=== PATIENT | female | born 1945 | race Caucasian/White ===

== ENCOUNTER 2016-11-21 16:48 | Inpatient (IN) | payer OTHER ==
--- NOTE | ~2016-11-21 | EGD ---
EGD REPORT [facility] [address] [address] NAME: VI CHAND : [birth year] STATUS : DIS IN PAT#: [id number] AGE: 71 ADM/REG DATE : 11/21/16 MR#: [id number] REPORT SERV DATE: 12/18/16 DICTATED BY: LAVERN ARAMBULA DATE: 12/18/16 REPORT STATUS : Draft [facility]ANSCRIBED [facility]: [facility] DATE: 12/18/16 Endoscopy Center Patient Name: Vi Chand Date of : 1945 Attending MD: LAVERN ARAMBULA MD Procedure Date No Time: 11/25/2016 Procedure: Colonoscopy Indications: Iron deficiency anemia Referring MD: ADAMARIS ANN MD Medicines: Monitored Anesthesia Care Complications: No immediate complications. Procedure: Pre-Anesthesia Assessment: - ASA Grade Assessment: III - A patient with severe systemic disease. After I obtained informed consent, the scope was passed under direct vision. Throughout the procedure, the patient's blood pressure, pulse, and oxygen saturations were monitored continuously. The PCF H190L [id number] was introduced through the anus and advanced to the terminal ileum, with identification of the appendiceal orifice and IC valve. The colonoscopy was performed with moderate difficulty due to significant looping. Successful completion of the procedure was aided by applying abdominal pressure. The patient tolerated the procedure well. The quality of the bowel preparation was good. Findings: The terminal ileum appeared normal. The colon (entire examined portion) appeared normal. Hemorrhoids were found during retroflexion and were mild. Impression: - The examined portion of the ileum was normal. - The entire examined colon is normal. - Hemorrhoids. Recommendation: - Patient has a contact number available for emergencies. The signs and symptoms of potential delayed complications were discussed with the patient. Return to normal activities tomorrow. Written discharge instructions were provided to the patient. - Regular diet. - Continue present medications. - Return to GI clinic in 4 weeks. - Reconsult if needed. EGD REPORT [facility] [address] [address] NAME: VI CHAND : [birth year] STATUS : DIS IN PAT#: [id number] AGE: 71 ADM/REG DATE : 11/21/16 MR#: [id number] REPORT SERV DATE: 12/18/16 DICTATED BY: LAVERN ARAMBULA DATE: 12/18/16 REPORT STATUS : Draft TRANSCRIBED BY: [employer] DATE: 12/18/16 - Iron supplement daily. - Outpatient follow up and pillcam Procedure Code(s): --- Professional --- 25606, Colonoscopy, flexible, proximal to splenic flexure; diagnostic, with or without collection of specimen(s) by brushing or washing, with or without colon decompression (separate procedure) Diagnosis Code(s): --- Professional --- K64.9, Unspecified hemorrhoids D50.9, Iron deficiency anemia, unspecified CPT copyright 2013 [employer]. All rights reserved. The codes documented in this report are preliminary and upon gas engine repairer review may be revised to meet current compliance requirements. LAVERN ARAMBULA MD 11/25/2016 8:48 AM This report has been signed electronically. Number of Addenda: 0 Note Initiated On: 11/25/2016 7:01 AM Scope Withdrawal Time 0 hours 6 minutes 38 seconds [address] [address]
--- NOTE | ~2016-11-21 | IDS ---
Interim Discharge Summary [facility] [address] [place]. [address] NAME: VI CHAND : [birth year] STATUS : ADM IN PAT#: [id number] AGE: 71 ADM/REG DATE : 11/21/16 MR#: [id number] REPORT SERV DATE: 11/26/16 DICTATED BY: LATRICE STRANGE DATE: 11/26/16 REPORT STATUS : Draft TRANSCRIBED BY: MODL DATE: 11/26/16 ADMISSION DATE: 11/21/2016 DISCHARGE DATE: REASON FOR ADMISSION: Direct admission from [facility] ER for acute loss anemia and concern for upper GI bleed. HISTORY OF PRESENT ILLNESS: Please refer to my history and physical for complete details regarding the patient's admission. In brief, the patient was admitted to the Hospitalist Service for symptomatic anemia likely secondary to an upper GI bleed along with acute blood loss anemia with an initial presentation to [facility] with a hemoglobin of 4. HOSPITAL COURSE: The patient had an uncomplicated hospital course. She presented to [facility] ER with a hemoglobin of 4. She was transfused 2 units of blood before being transferred to [facility] for further evaluation. She received an additional 3 units for a total of 5 units of blood products. She had serial hemoglobins, which were checked afterwards. Her hemoglobin had remained very stable at around 9.5. Dr. Coulter performed an EGD on 11/22/2016, which showed a tortuous esophagus and a hiatal hernia. Otherwise, no evidence of recent bleeding. She was started initially on IV Protonix, but then recommended switching over to oral Protonix twice a day. She then had a colonoscopy, which had been delayed for one to two days due to a poor prep. Dr. Harry performed a colonoscopy on Saturday, which showed the examined portion of the ileum was normal. The entire examined colon is normal. However, there are hemorrhoids, but no active bleeding, and recommended returning to the GI Clinic in four weeks. It was felt that her anemia was likely secondary to severe iron deficiency. We were unable to test her for iron deficiency. She had already received 2 units of blood prior to hospitalization, but at any rate, her hemoglobin has been stable ever since she received her blood and has not been dipped down at all. She was started on cefuroxime for an E. coli urinary tract infection. The patient is a chronic pain patient with an internalized Dilaudid pump, which we did not mess around with. She did complain of some constipation, which we gave her some laxatives. The patient's sister was concerned about her safety at home. Given her deconditioned state, we had PT evaluate her and recommended rehab. Unfortunately, a bed will not be available until Saturday at [facility] [place]. So, the patient will hang around until then. Otherwise, the patient has been stable and we are just waiting for transfer to rehab facility. Further disposition per oncoming hospitalist. INTERIM DIAGNOSES: Severe iron deficiency anemia, status post 5 units packed red blood cells, now stable; morbid obesity; chronic pain, dependent on narcotics, which is a Dilaudid pump; E coli urinary tract infection, resolving; history of gastritis with Desmond ulcers; and acute hypoxic respiratory failure secondary to symptomatic anemia, now resolved. PROCEDURES: Include consultation with Dr. Coulter and Dr. Harry, EGD, colonoscopy, transfusion of 3 units packed red blood cells at this hospital with [facility]. Interim Discharge Summary [address] [address] NAME: VI CHAND : [birth year] STATUS : ADM IN [facility]#: [id number] AGE: 71 ADM/REG DATE : 11/21/16 MR#: [id number] REPORT SERV DATE: 11/26/16 DICTATED BY: LATRICE STRNAGE DATE: 11/26/16 REPORT STATUS : Draft TRANSCRIBED BY: MODSaul DATE: 11/26/16 ROSSY/KEELEY Latrice Strange MD / [id number] CC: MD CHRISTIAN Giron [facility]
--- NOTE | ~2016-11-21 | EGD ---
EGD REPORT [facility] [address] [address] NAME: VI CHAND : [birth year] STATUS : ADM IN PAT#: [id number] AGE: 71 ADM/REG DATE : 11/21/16 MR#: [id number] REPORT SERV DATE: 11/25/16 DICTATED BY: LAVERN ARAMBULA DATE: 11/25/16 REPORT STATUS : Draft TRANSCRIBED BY: [facility] DATE: 11/25/16 Endoscopy Center Patient Name: Vi Chand Date of : 1945 Attending MD: LAVERN ARAMBULA MD Procedure Date No Time: 11/25/2016 Procedure: Colonoscopy Indications: Iron deficiency anemia Referring MD: ADAMARIS ANN MD Medicines: Monitored Anesthesia Care Complications: No immediate complications. Procedure: Pre-Anesthesia Assessment: - ASA Grade Assessment: III - A patient with severe systemic disease. After I obtained informed consent, the scope was passed under direct vision. Throughout the procedure, the patient's blood pressure, pulse, and oxygen saturations were monitored continuously. The PCF H190L [id number] was introduced through the anus and advanced to the terminal ileum, with identification of the appendiceal orifice and IC valve. The colonoscopy was performed with moderate difficulty due to significant looping. Successful completion of the procedure was aided by applying abdominal pressure. The patient tolerated the procedure well. The quality of the bowel preparation was good. Findings: The terminal ileum appeared normal. The colon (entire examined portion) appeared normal. Hemorrhoids were found during retroflexion and were mild. Impression: - The examined portion of the ileum was normal. - The entire examined colon is normal. - Hemorrhoids. Recommendation: - Patient has a contact number available for emergencies. The signs and symptoms of potential delayed complications were discussed with the patient. Return to normal activities tomorrow. Written discharge instructions were provided to the patient. - Regular diet. - Continue present medications. - Return to GI clinic in 4 weeks. - Reconsult if needed. EGD REPORT [facility] [address] [address] NAME: VI CHAND : [birth year] STATUS : ADM IN [facility]#: [id number] AGE: 71 ADM/REG DATE : 11/21/16 MR#: [id number] REPORT SERV DATE: 11/25/16 DICTATED BY: LAVERN ARAMBULA DATE: 11/25/16 REPORT STATUS : Draft TRANSCRIBED BY: [employer] DATE: 11/25/16 - Iron supplement daily. - Outpatient follow up and pillcam Procedure Code(s): --- Professional --- 02768, Colonoscopy, flexible, proximal to splenic flexure; diagnostic, with or without collection of specimen(s) by brushing or washing, with or without colon decompression (separate procedure) Diagnosis Code(s): --- Professional --- K64.9, Unspecified hemorrhoids D50.9, Iron deficiency anemia, unspecified CPT copyright 2013 [employer]. All rights reserved. The codes documented in this report are preliminary and upon hims coder review may be revised to meet current compliance requirements. LAVERN ARAMBULA MD 11/25/2016 8:48 AM This report has been signed electronically. Number of Addenda: 0 Note Initiated On: 11/25/2016 7:01 AM Scope Withdrawal Time 0 hours 6 minutes 38 seconds [address] [address]
--- NOTE | ~2016-11-21 | DS ---
Discharge Summary [facility] [address] [place]. [address] NAME: VI CHAND : [birth year] STATUS : DIS IN PAT#: [id number] AGE: 71 ADM/REG DATE : 11/21/16 MR#: [id number] REPORT SERV DATE: 12/01/16 DICTATED BY: OCTAVIO BUNN DATE: 12/01/16 REPORT STATUS : Draft TRANSCRIBED BY: MODL DATE: 12/01/16 ADMISSION DATE: 11/21/2016 DISCHARGE DATE: 11/30/2016 REASON FOR ADMISSION: This is a 71-year-old female who came in with a chief complaint of chest pain and shortness of breath since September. She was a direct admission from [facility] for acute blood loss anemia and upper GI bleed. The patient had been having chest pain and dyspnea on exertion since September, being followed by Dr. Heart. Had an echocardiogram done on 11/15/2016 that showed EF of 50% to 55%. She had two nuclear stress tests done, one in October and one in November which showed overall intermediate risk vasodilator PET scans. She had an EGD done by Dr. Malcolm in September which showed Desmond ulcers. DISCHARGE DIAGNOSES: 1. Severe iron-deficiency anemia. 2. Urinary tract infection. 3. Debility. 4. Chronic chest pain. 5. Chronic lower extremity edema. 6. Chronic pain with Dilaudid pump. 7. Morbid obesity. 8. History of gastritis with Desmond ulcers. 9. Anxiety. HOSPITAL COURSE: 1. Severe iron-deficiency anemia. The patient was transferred to [facility], admitted on a Protonix drip, and had endoscopy performed by GI on 11/22/[address] Coulter. Upper GI endoscopy would show a tortuous esophagus and a hiatal hernia. Examination otherwise normal. No suggestion of recent bleeding. A colonoscopy was performed by Dr. Harry on 11/25/2016. Findings were examined portion of the ileum was normal, the entire examined colon was normal, and hemorrhoids with recommendations of a regular diet, continue present medications, and follow up with GI Clinic in four weeks. Also should note that the patient received two units of packed red cells at [facility] and then here at [facility] received three additional units of packed red cells. Iron levels were checked. She had a ferritin of 4, so she was infused with iron dextran and given a prescription to start on oral iron at home. Hemoglobin which was as low as 6.3 on admission here after receiving two units at [facility] came up to 10.1 after three additional units and was at 10.7 on the 11/28/2016. 2. UTI. The patient was found to have UTI. Urine culture would grow E coli, and she would receive a full week of antibiotic here at the hospital. 3. Debility. The patient has a history of chronic back issues and chronic pain, on intrathecal Dilaudid pump. She was seen by Physical Therapy here at the hospital who recommended snf rehab. 4. Chronic chest pain. The patient had an episode of chest pain while here at the hospital. Cardiac enzymes were negative. EKG showed no signs of ischemia. As previously mentioned in the admission history, the patient had recent nuclear stress Discharge Summary [address] [address] NAME: VI CHAND : [birth year] STATUS : DIS IN PAT#: [id number] AGE: 71 ADM/REG DATE : 11/21/16 MR#: [id number] REPORT SERV DATE: 12/01/16 DICTATED BY: OCTAVIO BUNN DATE: 12/01/16 REPORT STATUS : Draft TRANSCRIBED BY: KEELEY DATE: 12/01/16 tests x2 over the last two months, once in November and once in October, and both were intermediate risk. The patient was seen by Dr. Heart and will follow up with him after rehab. 5. Anxiety. The patient does have a lot of anxiety and was on Klonopin. I have weaned her off Klonopin scheduled and made it p.r.n. and have started her on BuSpar. Her anxiety seemed to be much improved by the time of discharge. DISCHARGE CONDITION: Stable. DISCHARGE MEDICATIONS: 1. Effexor 150 mg p.o. daily. 2. Synthroid 112 mcg p.o. daily. 3. Aspirin 81 mg p.o. daily. 4. Baclofen 10 mg p.o. b.i.d. 5. Klonopin 0.5 mg p.o. daily. 6. Xyzal 5 mg p.o. daily. 7. Mirapex 0.75 mg p.o. b.i.d. 8. Dilaudid intrathecal pain pump. 9. Bentyl 10 mg p.o. t.i.d. p.r.n. 10.BuSpar 7.5 mg p.o. b.i.d. 11.Ferrous sulfate 325 mg p.o. b.i.d. DISCHARGE PLAN: The patient is discharged to rehab at [facility], I believe, [facility]. We will have her follow up with her primary care after rehab as well as follow up with Dr. Harry in four weeks and Dr. Heart after rehab as well. TDR/MODL Octavio Bunn APN / [id number] CC: Jhoana Murillo MD C. Samuel Ledford, M.D. James Scott [address], M.D. Suzanne Storey, M.D.
--- NOTE | ~2016-11-21 | EGD ---
EGD REPORT [facility] [address] [address] NAME: VI CHAND : [birth year] STATUS : ADM IN PAT#: [id number] AGE: 71 ADM/REG DATE : 11/21/16 MR#: [id number] REPORT SERV DATE: 11/22/16 DICTATED BY: ITCO JOSE DATE: 11/22/16 REPORT STATUS : Draft [facility]ANSCRIBED [facility]: [facility] DATE: 11/22/16 Endoscopy Center Patient Name: Vi Chand Date of : 1945 Attending MD: TICO JOSE MD Procedure Date No Time: 11/22/2016 Procedure: Upper GI endoscopy Indications: Melena Referring MD: ADAMARIS Liriano MD Medicines: Monitored Anesthesia Care Complications: No immediate complications. Estimated blood loss: None. Procedure: Pre-Anesthesia Assessment: - ASA Grade Assessment: III - A patient with severe systemic disease. After obtaining informed consent, the endoscope was passed under direct vision. Throughout the procedure, the patient's blood pressure, pulse, and oxygen saturations were monitored continuously. The GIF H190 [id number] was introduced through the mouth, and advanced to the second part of duodenum. The upper GI endoscopy was accomplished without difficulty. The patient tolerated the procedure well. Findings: The examined esophagus was moderately tortuous. A large hiatus hernia was present. The examined duodenum was normal. The exam was otherwise without abnormality. Impression: - Tortuous esophagus. - Hiatus hernia. - The examination was otherwise normal. - No suggestion of recent bleeding Recommendation: - Return patient to [facility] for ongoing care. - Use Protonix (pantoprazole) 40 mg PO BID. - Perform a colonoscopy tomorrow. Procedure Code(s): --- Professional --- 25440, Esophagogastroduodenoscopy, flexible, transoral; diagnostic, including collection of specimen(s) by brushing or washing, when performed (separate procedure) Diagnosis Code(s): --- Professional --- Q39.9, Congenital malformation of esophagus, unspecified EGD REPORT [address] [place]. [address] NAME: VI CHAND : [birth year] STATUS : ADM IN [facility]#: [id number] AGE: 71 ADM/REG DATE : 11/21/16 MR#: [id number] REPORT SERV DATE: 11/22/16 DICTATED BY: TICO JOSE DATE: 11/22/16 REPORT STATUS : Draft TRANSCRIBED BY: [employer] DATE: 11/22/16 K44.9, Diaphragmatic hernia without obstruction or gangrene K92.1, Melena CPT copyright 2013 [employer]. All rights reserved. The codes documented in this report are preliminary and upon certified medical records coder review may be revised to meet current compliance requirements. Tico Jose MD TICO JOSE MD 11/22/2016 4:45 PM This report has been signed electronically. Number of Addenda: 0 Note Initiated On: 11/22/2016 3:39 PM Scope Withdrawal Time 0 hours 0 minutes [address] [place], [place] [address] [place] [address]
--- NOTE | ~2016-11-21 | HP ---
History And Physical [place] [id number] [facility] [place]. [address] NAME: VI CHAND : [birth year] STATUS : ADM IN [facility]#: [id number] AGE: 71 ADM/REG DATE : 11/21/16 MR#: [id number] REPORT SERV DATE: 11/22/16 DICTATED BY: LATRICE STRANGE DATE: 11/21/16 REPORT STATUS : Draft TRANSCRIBED BY: MODSaul DATE: 11/21/16 DATE OF ADMISSION: 11/21/2016 REASON FOR ADMISSION: Direct admission from [facility] ER for acute blood loss anemia and upper GI bleed. CHIEF COMPLAINT: "I have been having chest pain and shortness of breath. Since September." HISTORY OF PRESENT ILLNESS: A 71-year-old morbidly obese white female with a history of pain pump secondary to severe back issues. Has been having issues with chest pain and dyspnea on exertion since September. She has been followed up closely by Dr. Heart. Had an echocardiogram done on 11/15/2016, which showed an EF 50% to 55%, mild concentric left ventricular hypertrophy, mild left atrial enlargement, [id number] tricuspid valve regurg. She had some nuclear imaging done on that time, which showed possible mild focal inferoapical ischemia as below with coronary artery disease with calcific atherosclerosis of mid distal LAD with a resting LVEF of 62%, overall intermediate risk vasodilator PET scan. She had an EGD done by Dr. Malcolm in September, which showed some Desmond ulcers. She has been having significant dyspnea on exertion and chest pain. The patient presented to Dr. Heart's office today for followup visit. When it was time to check her vitals, her oxygen saturations were in the 70s and then she went straight to [facility] ER for further evaluation. In the ER, she had an ABG done, which showed a pH 748, pCO2 of 39, and a pO2 of 129. They did imaging of her CT scan of her head, as the patient's sister has been complaining of some off and on confusion, which did not demonstrate any intracranial hemorrhage. She had a CT scan of her abdomen and pelvis, which showed a large hiatal hernia and a peripheral density could be atelectasis. A hemoglobin was obtained, which showed a hemoglobin of 4. The patient was transfused 2 units of packed red blood cells before being transferred to [facility] for further evaluation. The ER physician also noticed her to be somewhat drowsy and gave her a dose of Narcan and she did respond very briefly with that. He had given her a dose of 40 mg of Protonix followed by a Protonix drip. The sister says that the patient typically lives at home by herself. I feel that she has been declining over the past couple of months and she would not be by herself anymore. Hospice was asked to admit and manage her GI bleed. REVIEW OF SYSTEMS: The patient admits to retrosternal chest pain and shortness of breath. No nausea, vomiting, or diaphoresis. No recent changes in her medications. Otherwise, 10-point systems reviewed and are negative. PAST MEDICAL HISTORY: Obstructive sleep apnea, not on CPAP; morbid obesity; multiple back surgeries; postoperative wound infection from a back surgery; chronic pain, dependent on narcotics; hiatal hernia; tortuous esophagus; mild Schatzki's ring, Desmond ulcers at the level of the hiatal hernia; and hypothyroidism. PAST SURGICAL HISTORY: She has had multiple back surgeries, spinal fusion, I and D of lumbar wound, Vac-Pac placement. History And Physical [address] [address] NAME: VI CHAND : [birth year] STATUS : ADM IN [facility]#: [id number] AGE: 71 ADM/REG DATE : 11/21/16 MR#: [id number] REPORT SERV DATE: 11/22/16 DICTATED BY: LATRICE STRANGE DATE: 11/21/16 REPORT STATUS : Draft TRANSCRIBED BY: KEELEY DATE: 11/21/16 MEDICATIONS: Have been reviewed. ALLERGIES: CYMBALTA, MAOI, CODEINE, AND ROPINIROLE. SOCIAL HISTORY: She currently lives at home with her sister, but it appears she living by herself. Does not smoke. Drank between 20 and 27, but not since then. She used to work for [employer] and she is on disability. FAMILY HISTORY: Dad with heart disease and dementia. PHYSICAL EXAMINATION: VITAL SIGNS: On exam, they are pending. GENERAL: She is in no acute distress. Alert and oriented x3. She is drowsy. Will sleep off and on, but very easily arousable. Answers questions appropriately. HEENT: Normocephalic and atraumatic head. Extraocular muscles intact. Oropharynx clear. NECK: Supple. No JVD. CARDIAC: Regular rhythm. No murmurs, rubs, or gallops. PULMONARY: She had bibasilar crackles. No wheezing. ABDOMEN: Obese, soft, nontender, nondistended. Positive bowel sounds. EXTREMITIES: Showed no clubbing or cyanosis. There is about 2+ pitting edema in her lower extremities. NEUROLOGICAL: No focal deficits. PSYCHIATRIC: The patient is cooperative. Mood is appropriate. Could be slightly over- sedated from medications. LABORATORY DATA: Labs at the outside facility are pending, but reportedly hemoglobin of 4. IMPRESSION: 1. Symptomatic anemia likely secondary to upper gastrointestinal bleed. 2. Acute blood loss anemia. 3. History of several Desmond ulcers. 4. Gastritis. 5. Precordial chest pain. 6. Chronic pain, on pain pump. PLAN: To transfuse 3 more units packed red blood cells for a total of 5. The patient has already had 2 units. We will obtain a CBC and H and H q.8 hours. Continue her PPI drip. Administer Lasix to avoid volume overload. Consult Dr. Malcolm for an EGD tomorrow. We will make her n.p.o. after midnight. Obtain coags. The patient is a full code. ROSSY/KEELEY Latrice Strange MD History And Physical [address] [address] NAME: VI CHAND : [birth year] STATUS : ADM IN [facility]#: [id number] AGE: 71 ADM/REG DATE : 11/21/16 MR#: [id number] REPORT SERV DATE: 11/22/16 DICTATED BY: LATRICE STRANGE DATE: 11/21/16 REPORT STATUS : Draft TRANSCRIBED BY: KEELEY DATE: 11/21/16 / [id number] CC: MD Catalino Giron M.D. C. Samuel Ledford, M.D. Sandie Hacth M.D.
--- NOTE | ~2016-11-21 | CN ---
Consultation Report [facility] [address] [place]. [address] NAME: VI CHAND : 47 STATUS : ADM IN PAT#: [id number] AGE: 71 ADM/REG DATE : 11/21/16 MR#: [id number] REPORT SERV DATE: 11/22/16 DICTATED BY: HEIDI NOLASCO DATE: 11/22/16 REPORT STATUS : Draft TRANSCRIBED BY: KEELEY DATE: 11/22/16 GI CONSULTATION DATE OF CONSULTATION: 11/22/2016 REASON FOR CONSULTATION: Evaluation and management of acute blood loss anemia and history of melena. HISTORY OF PRESENT ILLNESS: Ms Chand is a 71-year-old female patient, known to Dr. Catalino Malcolm, who presented on the to [facility] as a transfer from [facility] Emergency Room for acute symptomatic anemia with a hemoglobin being found there of 4.2. She reports dark black tarry stools, last being on Saturday. She states these have been intermittent since September. She was seen by Dr. Malcolm in September for EGD. Indication for that test was DK with history of dysphagia. On that exam, she had findings of a normal second part of the duodenum, which she did biopsy. She had a large 8 cm hiatal hernia with Desmond's ulcers at the level of the hiatal hernia, tortuous esophagus, mild Schatzki's ring, which she dilated. Ms Chand state that since that time, she has still had difficulty swallowing. She notes very minimal improvement from the dilation that she received. She states that she has to grind foods up, almost puree them to even swallow them, a lot of times they will still get stuck. She reports black stool for the last month, some mild epigastric abdominal discomfort; however, no true pain. Her main complaint prior to going to [facility] was chest discomfort and shortness of breath. I have discussed with her, as well as a sister who is at the bedside. We will plan on pursuing EGD this afternoon. Risks, benefits, alternatives, and complications with them have been described to include, but not limited to risk of bleeding, perforation, infection, reaction to medications, as well as cardiac and pulmonary side effects. She is agreeable to proceed. She is status post three units of packed red blood cells with an improvement in her hemoglobin to 9.3. She did receive two units at [facility] prior to transfer. When she came in to [facility], her hemoglobin was noted to be 6.3. She did have a CT scan of the abdomen and pelvis showing a large hiatal hernia and perihilar densities secondary to possibly atelectasis. PAST MEDICAL HISTORY: Obstructive sleep apnea, Schatzki's ring, Desmond's ulcers, hiatal hernia, tortuous esophagus, hypothyroidism, obesity, multiple back surgeries, history of postoperative wound infection secondary to back intervention, and chronic pain, dependent on chronic narcotic pain medications. SOCIAL HISTORY: She currently lives along with her sister nearby. Denies alcohol, tobacco, or illicits. FAMILY HISTORY: Noncontributory from a GI standpoint. ALLERGIES: CYMBALTA, MONOAMINE OXIDASE INHIBITORS, MORPHINE, CODEINE, MELOXICAM, ROPINIROLE, LEVAQUIN, AND CELEBREX. Consultation Report [address] [place]. [address] NAME: VI CHAND : 47 STATUS : ADM IN [facility]#: [id number] AGE: 71 ADM/REG DATE : 11/21/16 MR#: [id number] REPORT SERV DATE: 11/22/16 DICTATED BY: HEIDI NOLASCO DATE: 11/22/16 REPORT STATUS : Draft TRANSCRIBED BY: KEELEY DATE: 11/22/16 HOME MEDICATIONS: Aspirin, baclofen, Klonopin, Bentyl, Lasix, Xyzal, Synthroid, Mirapex, Dilaudid pain pump, and Effexor. REVIEW OF SYSTEMS: A ten-point review of systems has been obtained with pertinent positives being addressed in the history of present illness. PHYSICAL EXAMINATION: VITAL SIGNS: Temperature 98.7, pulse 78, respirations 16, blood pressure 138/63. NEURO: Reveals an alert, obese female, resting in bed. GENERAL: She is cooperative. She is in no apparent distress. She is awake, alert, and oriented x3. HEAD, EARS, EYES, NOSE, AND THROAT: Anicteric. Pupils equal, round, and reactive to light and accommodation. Normocephalic and atraumatic. NECK: No JVD. No palpable nodes. Supple. LUNGS: Decreased throughout with normal respiratory effort exhibited. Equal expansion. CARDIOVASCULAR SYSTEM: Regular rate and rhythm. ABDOMEN: Obese and soft. No distention, rebound, guarding, or organomegaly elicited on exam. She has hypoactive bowel sounds in all four quadrants. EXTREMITIES: 1 to 2+ pitting edema in the lower extremities. SKIN: Warm, dry, and intact. PERTINENT LABORATORY DATA: Sodium is 144, potassium 3.5, BUN is 12, creatinine 0.61. White count 8.8, hemoglobin 9.3, and hematocrit 31.1. ASSESSMENT: 1. Melanotic stools. 2. Acute blood loss anemia. 3. Epigastric abdominal pain with dysphagia. 4. History of Desmond's ulcers. 5. Chest pain likely secondary to anemia, negative troponins. PLAN: 1. EGD today with Dr. Coulter. 2. Continue her proton pump inhibitor. 3. Question if she might benefit from hernia repair as the dilation did not seem to benefit the patient. However, we will await endoscopy findings. We will follow. LILLY/KEELEY LANA Thomas Consultation Report [address] [address] NAME: VI CHAND : 47 STATUS : ADM IN [facility]#: [id number] AGE: 71 ADM/REG DATE : 11/21/16 MR#: [id number] REPORT SERV DATE: 11/22/16 DICTATED BY: HEIDI NOLASCO DATE: 11/22/16 REPORT STATUS : Draft TRANSCRIBED BY: KEELEY DATE: 11/22/16 / [id number] CC: German Strange MD DAILY,CHRISTIAN
[~2016-11-21 16:48] MED LIST: AMIT25 PO; ARMOUR THYRO15 MG PO; BENTYL10 PO; CELEXA40 MG PO; DILAUDID; EFFEXOR XR150 MG PO; FISH-EPA1000 MG PO; FLONASE NAS; IRON325 MG PO; L40 PO; LEVOTHYROXIN112 MCG PO; LIOR10 PO; MIRALAXPKT PO; MIRAPEX0.75 MG PO; NEUR300 PO; PHENERGAN (G25 MG/ML IV; PRILO PO; XYZAL5 MG PO; ZOFRAN2ML IV; ZYRTEC ALLGY10 MG PO; [UNRECOGNIZED DRUG - OTHER] IV
[2016-11-21 18:50] LABS: BASOPHILS 0.3 %; BASOPHILS ABSOLUTE 0.03 10/3/uL (0.0-0.16); EOSINOPHILS 0.8 %; EOSINOPHILS ABSOLUTE 0.07 10/3/uL (0.0-0.53); IMMATURE GRANULOCYTES 0.3 %; IMMATURE GRANULOCYTES ABSOLUTE 0.03 10/3/uL (0.0-0.11); LYMPHOCYTES 17.4 %; LYMPHOCYTES ABSOLUTE 1.54 10/3/uL (0.67-4.30); MEAN PLATELET VOLUME 9.3 fL (9.2-13.0); MONOCYTES 8.3 %; MONOCYTES ABSOLUTE 0.73 10/3/uL (0.21-1.20); NEUTROPHILS 72.9 %; NEUTROPHILS ABSOLUTE 6.43 10/3/uL (2.02-8.40)
[2016-11-21 18:54] LABS: HEMATOCRIT 23.2 % (36.0-48.0); HEMOGLOBIN 6.3 g/dL (12.0-16.0); MEAN CORPUS HGB CONC 27.2 g/dL (32.0-36.0); MEAN CORPUSCULAR HEMOGLOB 20.3 pg (26.0-34.0); MEAN CORPUSCULAR VOLUME 74.8 fL (80-100); PLATELET COUNT 381 10/3/uL (150-400); RBC DISTRIBUTION WIDTH 19.5 % (12.0-16.0); WHITE BLOOD CELLS 8.8 10/3/uL (4.5-10.5)
[2016-11-21] MEDS ORDERED: L20 PO (18:54)
[2016-11-21 18:55] LABS: MANUAL DIFF NO %
[2016-11-21] MEDS ORDERED: BENTYL10 PO (18:55)
[2016-11-21] MEDS ORDERED: ASAB PO (18:55)
[2016-11-21] MEDS ORDERED: SYN112 PO (18:55)
[2016-11-21] MEDS ORDERED: EFFEXOR XR150 MG PO (18:55)
[2016-11-21] MEDS ORDERED: XYZAL5 MG PO (18:56)
[2016-11-21] MEDS ORDERED: LIOR10 PO (18:56)
[2016-11-21] MEDS ORDERED: KLONO5 PO (18:56)
[2016-11-21] MEDS ORDERED: MIRAPEX0.75 MG PO (18:56)
[2016-11-21] MEDS ORDERED: DILAUDID PAIN PUMP IT (18:57)
[2016-11-21] MEDS ORDERED: *UNABLE2 (19:05)
[2016-11-21 19:41] LABS: INTERNATIONAL NORMAL RATI 1.1 UNITS (-); PARTIAL THROMBO TIME 29.6 SEC (22.5-37.2); PROTIME (NOT ORD) 14.1 SEC (12.0-14.5)
[2016-11-21 19:52] LABS: ALKALINE PHOSPHATASE 137 U/L (45-117); BUN (BLOOD UREA NITROGEN) 16 MG/DL (6-23); CALCIUM, SERUM 8.8 MG/DL (8.5-10.4); CHLORIDE, SERUM 106 MMOL/L (96-112); CO2 (CARBON DIOXIDE) 30 MMOL/L (24-34); CREATININE 0.64 MG/DL (0.55-1.02); FERRITIN 4 NG/ML (8-252); GFR AFRICAN AMERICAN 106 ML/MIN (>=60); GFR NON AFRICAN AMERICAN 91 ML/MIN (>=60); IRON BINDING CAPACITY 515 MCG/DL (225-410); IRON, SERUM 20 MCG/DL (35-150); PHOSPHORUS, SERUM 2.7 MG/DL (2.5-4.5); SGOT(AST) 21 U/L (5-40); SGPT(ALT) 20 U/L (5-65); TOTAL BILIRUBIN 0.4 MG/DL (0-1.2)
[2016-11-21 19:53] LABS: A/G RATIO 0.8 (0.7-1.9); ALBUMIN 3.3 G/DL (3.5-5.0); GLOBULIN 4.1 G/DL (2.5-4.1); GLUCOSE, SERUM 89 MG/DL (60-99); POTASSIUM, SERUM 3.9 MMOL/L (3.5-5.3); SODIUM, SERUM 144 MMOL/L (135-148); TOTAL PROTEIN 7.4 G/DL (6.0-8.5)
[2016-11-22 10:33] LABS: HEMATOCRIT 31.1 % (36.0-48.0); HEMOGLOBIN 9.3 g/dL (12.0-16.0)
[2016-11-22 10:50] LABS: BUN (BLOOD UREA NITROGEN) 12 MG/DL (6-23); CALCIUM, SERUM 8.3 MG/DL (8.5-10.4); CHLORIDE, SERUM 104 MMOL/L (96-112); CO2 (CARBON DIOXIDE) 35 MMOL/L (24-34); CPK (IF ELEVATED MB BANDS) 37 U/L (0-200); CREATININE 0.61 MG/DL (0.55-1.02); GFR AFRICAN AMERICAN 107 ML/MIN (>=60); GFR NON AFRICAN AMERICAN 92 ML/MIN (>=60); GLUCOSE, SERUM 107 MG/DL (60-99); PHOSPHORUS, SERUM 2.5 MG/DL (2.5-4.5); POTASSIUM, SERUM 3.5 MMOL/L (3.5-5.3); SODIUM, SERUM 144 MMOL/L (135-148); TROPONIN I 0.02 NG/ML (<0.05)
[2016-11-22 22:16] LABS: BASOPHILS 0.3 %; BASOPHILS ABSOLUTE 0.04 10/3/uL (0.0-0.16); EOSINOPHILS 0.9 %; EOSINOPHILS ABSOLUTE 0.14 10/3/uL (0.0-0.53); HEMATOCRIT 33.9 % (36.0-48.0); HEMOGLOBIN 10.1 g/dL (12.0-16.0); IMMATURE GRANULOCYTES 0.8 %; IMMATURE GRANULOCYTES ABSOLUTE 0.12 10/3/uL (0.0-0.11); LYMPHOCYTES 13.4 %; LYMPHOCYTES ABSOLUTE 2.15 10/3/uL (0.67-4.30); MEAN PLATELET VOLUME 9.7 fL (9.2-13.0); MONOCYTES 11.9 %; NEUTROPHILS 72.7 %; NEUTROPHILS ABSOLUTE 11.65 10/3/uL (2.02-8.40); PLATELET COUNT 343 10/3/uL (150-400); RBC DISTRIBUTION WIDTH 19.5 % (12.0-16.0)
[2016-11-22 22:17] LABS: MANUAL DIFF NO %; MEAN CORPUS HGB CONC 29.8 g/dL (32.0-36.0); MEAN CORPUSCULAR HEMOGLOB 23.3 pg (26.0-34.0); MEAN CORPUSCULAR VOLUME 78.3 fL (80-100); RED CELL COUNT 4.33 10/6/uL (4.0-5.6)
[2016-11-23 06:22] LABS: INTERNATIONAL NORMAL RATI 1.3 UNITS (-); PARTIAL THROMBO TIME 33.5 SEC (22.5-37.2); PROTIME (NOT ORD) 15.8 SEC (12.0-14.5)
[2016-11-23 06:27] LABS: HEMOGLOBIN 9.2 g/dL (12.0-16.0); PLATELET COUNT 307 10/3/uL (150-400)
[2016-11-23 06:28] LABS: CALCIUM, SERUM 8.4 MG/DL (8.5-10.4); CHLORIDE, SERUM 104 MMOL/L (96-112); CREATININE 0.48 MG/DL (0.55-1.02); GFR AFRICAN AMERICAN 116 ML/MIN (>=60); GFR NON AFRICAN AMERICAN 100 ML/MIN (>=60); GLUCOSE, SERUM 112 MG/DL (60-99); PHOSPHORUS, SERUM 2.2 MG/DL (2.5-4.5); POTASSIUM, SERUM 3.4 MMOL/L (3.5-5.3); SODIUM, SERUM 142 MMOL/L (135-148)
[2016-11-23 06:30] LABS: BUN (BLOOD UREA NITROGEN) 6 MG/DL (6-23); CO2 (CARBON DIOXIDE) 28 MMOL/L (24-34)
[2016-11-23 06:30] LABS: HEMATOCRIT 30.4 % (36.0-48.0)
[2016-11-23 12:13] LABS: HEMATOCRIT 31.1 % (36.0-48.0); HEMOGLOBIN 9.3 g/dL (12.0-16.0)
[2016-11-23 20:50] LABS: HEMATOCRIT 33.6 % (36.0-48.0); HEMOGLOBIN 9.9 g/dL (12.0-16.0)
[2016-11-24 05:24] LABS: INTERNATIONAL NORMAL RATI 1.5 UNITS (-); PARTIAL THROMBO TIME 29.8 SEC (22.5-37.2); PROTIME (NOT ORD) 17.7 SEC (12.0-14.5)
[2016-11-24 05:30] LABS: BUN (BLOOD UREA NITROGEN) 7 MG/DL (6-23); CALCIUM, SERUM 9.1 MG/DL (8.5-10.4); CHLORIDE, SERUM 107 MMOL/L (96-112); CO2 (CARBON DIOXIDE) 30 MMOL/L (24-34); CREATININE 0.62 MG/DL (0.55-1.02); GFR AFRICAN AMERICAN 107 ML/MIN (>=60); GFR NON AFRICAN AMERICAN 92 ML/MIN (>=60); PHOSPHORUS, SERUM 2.3 MG/DL (2.5-4.5); POTASSIUM, SERUM 3.8 MMOL/L (3.5-5.3); SODIUM, SERUM 143 MMOL/L (135-148)
[2016-11-24 05:34] LABS: GLUCOSE, SERUM 87 MG/DL (60-99)
[2016-11-24 05:43] LABS: HEMATOCRIT 33.5 % (36.0-48.0); HEMOGLOBIN 9.9 g/dL (12.0-16.0); PLATELET COUNT 375 10/3/uL (150-400)
[2016-11-24 07:37] LABS: ASCORBIC ACID (UR NOT ORDER) NEG (NEG); BILIRUBIN, URINE NEGATIVE (NEG); KETONE, URINE NEGATIVE (NEG); LEUKOCYTE ESTERASE(NOT OR MOD (NEG)
[2016-11-24 07:42] LABS: WBC (NOT ORDERED) (RFLEX) > 182 (0-5)
[2016-11-24 13:05] LABS: HEMATOCRIT 33.9 % (36.0-48.0); HEMOGLOBIN 9.8 g/dL (12.0-16.0)
[2016-11-25 06:43] LABS: BASOPHILS 0.4 %; BASOPHILS ABSOLUTE 0.04 10/3/uL (0.0-0.16); BUN (BLOOD UREA NITROGEN) 5 MG/DL (6-23); CALCIUM, SERUM 8.3 MG/DL (8.5-10.4); CHLORIDE, SERUM 108 MMOL/L (96-112); CO2 (CARBON DIOXIDE) 29 MMOL/L (24-34); CREATININE 0.56 MG/DL (0.55-1.02); EOSINOPHILS 7.3 %; EOSINOPHILS ABSOLUTE 0.66 10/3/uL (0.0-0.53); GFR AFRICAN AMERICAN 110 ML/MIN (>=60); GFR NON AFRICAN AMERICAN 95 ML/MIN (>=60); GLUCOSE, SERUM 81 MG/DL (60-99); HEMATOCRIT 33.5 % (36.0-48.0); HEMOGLOBIN 9.5 g/dL (12.0-16.0); IMMATURE GRANULOCYTES 0.7 %; IMMATURE GRANULOCYTES ABSOLUTE 0.06 10/3/uL (0.0-0.11); LYMPHOCYTES 19.7 %; LYMPHOCYTES ABSOLUTE 1.78 10/3/uL (0.67-4.30); MEAN CORPUS HGB CONC 28.4 g/dL (32.0-36.0); MEAN CORPUSCULAR HEMOGLOB 23.6 pg (26.0-34.0); MEAN PLATELET VOLUME 8.9 fL (9.2-13.0); MONOCYTES 12.4 %; MONOCYTES ABSOLUTE 1.12 10/3/uL (0.21-1.20); NEUTROPHILS 59.5 %; NEUTROPHILS ABSOLUTE 5.36 10/3/uL (2.02-8.40); PHOSPHORUS, SERUM 2.7 MG/DL (2.5-4.5); PLATELET COUNT 348 10/3/uL (150-400); POTASSIUM, SERUM 3.7 MMOL/L (3.5-5.3); RBC DISTRIBUTION WIDTH 20.8 % (12.0-16.0); RED CELL COUNT 4.02 10/6/uL (4.0-5.6); SGOT(AST) 11 U/L (5-40); SGPT(ALT) 15 U/L (5-65); SODIUM, SERUM 145 MMOL/L (135-148); TOTAL BILIRUBIN 0.4 MG/DL (0-1.2); TOTAL PROTEIN 6.1 G/DL (6.0-8.5)
[2016-11-25 06:44] LABS: MANUAL DIFF NO %; MEAN CORPUSCULAR VOLUME 83.3 fL (80-100)
[2016-11-25 06:45] LABS: A/G RATIO 0.7 (0.7-1.9); ALBUMIN 2.5 G/DL (3.5-5.0); ALKALINE PHOSPHATASE 110 U/L (45-117); GLOBULIN 3.6 G/DL (2.5-4.1)
[2016-11-25 23:06] LABS: HEMATOCRIT 35.9 % (36.0-48.0); HEMOGLOBIN 10.5 g/dL (12.0-16.0)
[2016-11-26 06:41] LABS: BUN (BLOOD UREA NITROGEN) 5 MG/DL (6-23); CHLORIDE, SERUM 101 MMOL/L (96-112); CO2 (CARBON DIOXIDE) 29 MMOL/L (24-34); CREATININE 0.62 MG/DL (0.55-1.02); GFR AFRICAN AMERICAN 107 ML/MIN (>=60); GFR NON AFRICAN AMERICAN 92 ML/MIN (>=60); PHOSPHORUS, SERUM 2.6 MG/DL (2.5-4.5); POTASSIUM, SERUM 4.2 MMOL/L (3.5-5.3); SODIUM, SERUM 140 MMOL/L (135-148)
[2016-11-26 06:42] LABS: GLUCOSE, SERUM 125 MG/DL (60-99)
[2016-11-27 05:10] LABS: BUN (BLOOD UREA NITROGEN) 6 MG/DL (6-23); CALCIUM, SERUM 8.4 MG/DL (8.5-10.4); CHLORIDE, SERUM 104 MMOL/L (96-112); CO2 (CARBON DIOXIDE) 33 MMOL/L (24-34); CREATININE 0.51 MG/DL (0.55-1.02); GFR AFRICAN AMERICAN 114 ML/MIN (>=60); GFR NON AFRICAN AMERICAN 98 ML/MIN (>=60); GLUCOSE, SERUM 102 MG/DL (60-99); PHOSPHORUS, SERUM 3.2 MG/DL (2.5-4.5); POTASSIUM, SERUM 3.9 MMOL/L (3.5-5.3); SODIUM, SERUM 144 MMOL/L (135-148)
[2016-11-28 05:41] LABS: BASOPHILS 0.2 %; BASOPHILS ABSOLUTE 0.02 10/3/uL (0.0-0.16); EOSINOPHILS ABSOLUTE 0.68 10/3/uL (0.0-0.53); HEMOGLOBIN 10.7 g/dL (12.0-16.0); IMMATURE GRANULOCYTES 0.7 %; IMMATURE GRANULOCYTES ABSOLUTE 0.06 10/3/uL (0.0-0.11); LYMPHOCYTES 24.5 %; LYMPHOCYTES ABSOLUTE 2.08 10/3/uL (0.67-4.30); MEAN CORPUS HGB CONC 28.9 g/dL (32.0-36.0); MEAN PLATELET VOLUME 9.2 fL (9.2-13.0); MONOCYTES 10.4 %; MONOCYTES ABSOLUTE 0.88 10/3/uL (0.21-1.20); NEUTROPHILS 56.2 %; NEUTROPHILS ABSOLUTE 4.78 10/3/uL (2.02-8.40); PLATELET COUNT 410 10/3/uL (150-400); RED CELL COUNT 4.46 10/6/uL (4.0-5.6); WHITE BLOOD CELLS 8.5 10/3/uL (4.5-10.5)
[2016-11-28 05:43] LABS: MANUAL DIFF NO %
[2016-11-28 05:54] LABS: BUN (BLOOD UREA NITROGEN) 6 MG/DL (6-23); CALCIUM, SERUM 9.1 MG/DL (8.5-10.4); CHLORIDE, SERUM 99 MMOL/L (96-112); CO2 (CARBON DIOXIDE) 36 MMOL/L (24-34); CREATININE 0.68 MG/DL (0.55-1.02); GFR AFRICAN AMERICAN 103 ML/MIN (>=60); GFR NON AFRICAN AMERICAN 89 ML/MIN (>=60); GLUCOSE, SERUM 98 MG/DL (60-99); PHOSPHORUS, SERUM 2.9 MG/DL (2.5-4.5); SODIUM, SERUM 142 MMOL/L (135-148)
[2016-11-28 06:02] LABS: POTASSIUM, SERUM 3.8 MMOL/L (3.5-5.3)
[2016-11-29 07:36] LABS: BUN (BLOOD UREA NITROGEN) 8 MG/DL (6-23); CALCIUM, SERUM 9.1 MG/DL (8.5-10.4); CHLORIDE, SERUM 100 MMOL/L (96-112); CO2 (CARBON DIOXIDE) 36 MMOL/L (24-34); CREATININE 0.64 MG/DL (0.55-1.02); GFR AFRICAN AMERICAN 106 ML/MIN (>=60); GFR NON AFRICAN AMERICAN 91 ML/MIN (>=60); GLUCOSE, SERUM 88 MG/DL (60-99); POTASSIUM, SERUM 3.6 MMOL/L (3.5-5.3); SODIUM, SERUM 142 MMOL/L (135-148)
[2016-11-29 07:38] LABS: PHOSPHORUS, SERUM 3.8 MG/DL (2.5-4.5)
[2016-11-30 06:09] LABS: BUN (BLOOD UREA NITROGEN) 9 MG/DL (6-23); CALCIUM, SERUM 9.5 MG/DL (8.5-10.4); CHLORIDE, SERUM 99 MMOL/L (96-112); CO2 (CARBON DIOXIDE) 35 MMOL/L (24-34); CREATININE 0.63 MG/DL (0.55-1.02); GFR AFRICAN AMERICAN 106 ML/MIN (>=60); GFR NON AFRICAN AMERICAN 92 ML/MIN (>=60); GLUCOSE, SERUM 89 MG/DL (60-99); PHOSPHORUS, SERUM 3.5 MG/DL (2.5-4.5); SODIUM, SERUM 142 MMOL/L (135-148)
[2017-05-23] MEDS ORDERED: DITRO5 PO (08:13)
[2017-05-30] MEDS ORDERED: HEMOCYTE324 MG PO (14:57)
[2017-06-14] MEDS ORDERED: DILAUDID PAIN PUMP INF (10:58)
== END 2016-11-30 11:58 | DRG 377 ==
LOC: 7NO 16:48
PROVIDERS: Internal Medicine; Internal Medicine Gastroenterology; Nurse Practitioner Family; Nurse Practitioner Gerontology
PROC: 0DJ08ZZ Inspection of Upper Intestinal Tract, Via Natural or Artificial Opening Endoscopic (ICD-10-PCS; 2016-11-22)
PROC: 30233N1 Transfusion of Nonautologous Red Blood Cells into Peripheral Vein, Percutaneous Approach (ICD-10-PCS; principal; 2016-11-22 16:32)
PROC: 0DJD8ZZ Inspection of Lower Intestinal Tract, Via Natural or Artificial Opening Endoscopic (ICD-10-PCS; 2016-11-25)
DX: K92.2 Gastrointestinal hemorrhage, unspecified (principal); J96.01 Acute respiratory failure with hypoxia; Z68.41 Body mass index [BMI] 40.0-44.9, adult; Q39.9 Congenital malformation of esophagus, unspecified; F11.20 Opioid dependence, uncomplicated; E87.70 Fluid overload, unspecified; D62 Acute posthemorrhagic anemia; N39.0 Urinary tract infection, site not specified; K25.9 Gastric ulcer, unspecified as acute or chronic, without hemorrhage or perforation; Z23 Encounter for immunization; R07.89 Other chest pain; E66.01 Morbid (severe) obesity due to excess calories; G89.29 Other chronic pain; K29.70 Gastritis, unspecified, without bleeding; K59.00 Constipation, unspecified; F41.9 Anxiety disorder, unspecified; B96.20 Unspecified Escherichia coli [E. coli] as the cause of diseases classified elsewhere; R13.10 Dysphagia, unspecified; K44.9 Diaphragmatic hernia without obstruction or gangrene; K64.9 Unspecified hemorrhoids; Z79.891 Long term (current) use of opiate analgesic
CPT/HCPCS: 36415; 71010; 80048; 80053; 81001; 82140; 82550; 82728; 83540; 83550; 83735; 84100; 84132; 84484; 85014; 85018; 85025; 85049; 85610; 85730; 86850; 86900; 86901; 86920; 87077; 87086; 87186; 90662; 93005; 93970; 97116-GP; 97161-GP; A9270-GY; C9113; G0008; G0463; J1750; J1940; P9016

== ENCOUNTER 2016-12-29 23:42 | Observation (INO) | payer OTHER ==
--- NOTE | ~2016-12-29 | DS ---
Discharge Summary [facility] [address] [place]. [address] NAME: VI CHAND : 47 STATUS : DIS [facility] PAT#: [id number] AGE: 71 ADM/REG DATE : 12/29/16 MR#: [id number] REPORT SERV DATE: 12/31/16 DICTATED BY: JUANI BUENO DATE: 12/30/16 REPORT STATUS : Draft TRANSCRIBED BY: MODL DATE: 12/30/16 ADMISSION DATE: 12/29/2016 DISCHARGE DATE: 12/30/2016 DISCHARGE DIAGNOSES: 1. Abdominal pain, resolved. 2. Cholelithiasis. 3. Dysuria, resolved. 4. Syncope, stable. 5. Chronic back pain, stable. 6. Fibromyalgia, stable. 7. Elevated liver enzyme. IMAGIN. CT abdomen and pelvis, 12/30/2016. Impression, no acute abnormality of the abdomen or pelvis. Cholelithiasis without evidence of acute cholecystitis. Stable mesenteric fat containing umbilical hernia, . 2. Gallbladder ultrasound, 12/30/2016. Impression cholelithiasis without evidence of acute cholecystitis or biliary obstruction. HOSPITAL COURSE: Please refer to history and physical dictated by Dr. Alen Kincaid on 06/30/2017. This patient is a 71-year-old female, who presented to [facility] with complaints of increasing back pain as well as abdominal pain. The patient does present with a history of chronic anemia as well as chronic pain. The patient presented in [facility] emergency room with complaints of increased pain. Prior to admission she did rate the pain level of 10. The patient will be admitted under observation for further testing. 1. Abdominal pain. The patient did state that she was having increased abdominal pain as well as back pain. The patient was admitted for further testing. At this time, the patient does deny abdominal pain as well as abdominal tenderness to touch. The patient has required no pain medication, this has resolved. 2. Cholelithiasis. The patient did have complaints of increased abdominal pain and also she had some nausea at home but since hospitalization the patient denied nausea. Ultrasound and CT were obtained which were reviewed with the patient which did show gallstones but no infection. The patient is in agreement to discharge home and to follow up with her primary care for further evaluation. 3. Dysuria. The patient did have complaints prior to admission of dysuria. Upon admission the patient has UA had a trace of ketone as well as a trace of leukocyte esterase. The patient at this time is voiding without difficulty. 4. Syncope. The patient did state that she felt lightheadedness prior to admission. Since her blood pressure has remained stable the patient has had no issues upon admission. 5. Chronic back pain. The patient will continue pain medications upon discharge. 6. Fibromyalgia. Again the patient will resume home medications upon discharge. 7. Elevated liver enzymes. Upon admission, liver enzymes have been noted to be elevated. Discharge Summary [address] [address] NAME: VI CHAND : 47 STATUS : DIS [facility] PAT#: [id number] AGE: 71 ADM/REG DATE : 12/29/16 MR#: [id number] REPORT SERV DATE: 12/31/16 DICTATED BY: JUANI BUENO DATE: 12/30/16 REPORT STATUS : Draft TRANSCRIBED BY: KEELEY DATE: 12/30/16 Upon admission ALT was 96, AST was 47. At this time, ALT is 77 and AST is 36 and she wants to follow up with her primary care regarding further testing. DISCHARGE MEDICATIONS: The patient will resume all home medications upon discharge. 1. Aspirin 81 mg one p.o. daily. 2. Baclofen 10 mg one p.o. three times daily. 3. BuSpar 7.5 mg one p.o. twice daily. 4. Klonopin 0.25 mg twice daily p.r.n. 5. Voltaren 75 mg p.o. twice daily. 6. Bentyl 10 mg one p.o. three times daily p.r.n. 7. Ferrous sulfate 325 mg one p.o. twice daily. 8. Lasix 40 to 80 mg p.r.n. daily. 9. Xyzal 5 mg one p.o. at bedtime. 10.Synthroid 112 mcg tablet one p.o. daily. 11.Protonix 40 mg one p.o. twice daily. 12.Protonix 40 mg one p.o. before breakfast. 13.Mirapex 0.75 mg one p.o. twice daily. 14.Mirapex extended release 0.375 p.o. twice daily. 15.Zantac 150 mg one p.o. daily. 16.Demadex 10 mg one p.o. daily. 17.Demadex 20 mg one p.o. daily. 18.Effexor XR 75 mg to 150 mg p.o. daily. DISCHARGE PLAN: This patient is being discharged home in hemodynamically stable condition. Advised her to follow up with her primary care in 4 to 5 days for further evaluation. This discharge took less than 30 minutes. DANITZA/KEELEY Juani Bueno NP / [id number] CC: MD Sandie Nuñez M.D.
--- NOTE | ~2016-12-29 | HP ---
History And Physical [facility] [id number] [place]. [address] NAME: VI CHAND : 47 STATUS : ADM [facility] PAT#: [id number] AGE: 71 ADM/REG DATE : 12/29/16 MR#: [id number] REPORT SERV DATE: 12/30/16 DICTATED BY: KAUSHIK CARRERO DATE: 12/30/16 REPORT STATUS : Draft TRANSCRIBED BY: KEELEY DATE: 12/30/16 DATE OF ADMISSION: 12/29/2016 CHIEF COMPLAINT: A 71-year-old female presenting with increasing back pain, abdominal pain. HISTORY OF PRESENT ILLNESS: The patient's history was obtained through careful interview with the patient, coupled with review of [facility] and [facility] medical records. The patient in 2017 has had a complicated medical course. She has been evaluated for shortness of breath by Dr. Heart and this has led to the recognition of chronic anemia. She has received iron supplements and transfusions for severe anemia this year and has had a GI evaluation that showed Desmond lesions under the care of Dr. Malcolm. She has also had cardiac evaluations with a negative echocardiogram in 11/2016 and two separate kinds of stress test of the heart in 10/2016 and 11/2016 that were "negative." Most recently she was rehabilitating because of weakness at [facility] after being evaluated for anemia and seemed to have improved well enough to go back home. But it was just in the last two days, the patient has developed increasing somnolence, sleepiness, weakness. She had lightheadedness and had a brief moment of passing out on the evening leading up to admission. She states that her legs sometimes give out. But her particular complaint has been increasing abdominal and back pain. She wonders if it is related to her fibromyalgia. She describes chronic back pain, but this is worse than usual. It is in the middle of her back radiating down the left side with sciatica, but her sciatic on the right side is worse than the left. She states that she also gets significant pain in her "sacroiliac joint" stating "it hurts like hell," up to a nine out of 10 severity. She has also had mid abdominal discomfort. This sometimes radiates mostly toward the left lower quadrant, a sharp aching quality that comes in paroxysms, likewise about nine out of 10 severity. She has chronic lymphedema, unchanged from baseline. She has had mild dysuria with urinary frequency. No further chest pain. No shortness of breath. No nausea or vomiting. REVIEW OF SYSTEMS: Otherwise, a 14-point review of systems was obtained and was negative. PAST MEDICAL HISTORY: 1. Hiatal hernia. 2. Cholelithiasis. History And Physical [address] [address] NAME: VI CHAND : 47 STATUS : ADM [facility] PAT#: [id number] AGE: 71 ADM/REG DATE : 12/29/16 MR#: [id number] REPORT SERV DATE: 12/30/16 DICTATED BY: KAUSHIK CARRERO DATE: 12/30/16 REPORT STATUS : Draft TRANSCRIBED BY: KEELEY DATE: 12/30/16 3. Chronic pain management for chronic back pain. 4. Fibromyalgia. 5. Anemia with history of transfusions, 11/2016, seen by Dr. Malcolm. 6. Peptic ulcer disease, Desmond lesions, seen by Dr. Malcolm. 7. Hypothyroidism. 8. Dyspnea evaluation with negative echocardiogram and negative cardiac stress test in 11/2016, seen by Dr. Heart. 9. Urinary tract infection. 10.Lymphedema. 11.Anxiety. 12.Obstructive sleep apnea, but not on CPAP. 13.Elevated ammonia. 14.Pneumonia. PAST SURGICAL HISTORY: 1. Pain pump. 2. Lumbar spine surgery, "Multiple". 3. Incision and drainage of lumbar spine infection. 4. Appendectomy. 5. Rectal fistula repair. ALLERGIES: CYMBALTA, MORPHINE, MONOAMINE OXIDASE INHIBITORS, CODEINE, MOBIC, REQUIP, LEVAQUIN, CELEBREX. SOCIAL HISTORY: No tobacco abuse. Quit alcohol. Living with her sister on disability. Lives in [place], [place]. FAMILY HISTORY: Heart disease, dementia. Mother in her 90s. CURRENT MEDICATIONS: Unknown at this time. We have requested pharmacy to investigate and compile a list for us. PHYSICAL EXAMINATION: VITAL SIGNS: Temperature 97.3, pulse 70, blood pressure 129/61, respiratory rate 18, O2 saturation 95% on room air. GENERAL: A pleasant, cooperative female. She describes this current distress from pain, but she does not appear in distress by exam. HEENT: Pupils equal, round, and reactive to light. No conjunctival pallor. No scleral icterus. Nares are patent. Oropharynx is clear of obstruction. Moist mucous membranes. NECK: Trachea midline. No thyromegaly. LYMPH: No cervical lymphadenopathy. No supraclavicular lymphadenopathy. RESPIRATORY: Clear to auscultation at bases. No wheezes, rales, or rhonchi. Normal respiratory effort. CARDIOVASCULAR: Regular rate and rhythm. No murmurs, rubs, or gallops. The patient does have bilateral chronic appearing lower extremity edema that is symmetrical. ABDOMEN: By my examination is completely soft, nontender. No rebound, no guarding. Nondistended. No hepatosplenomegaly. History And Physical [address] [address] NAME: VI CHAND : 47 STATUS : ADM [facility]ios PAT#: [id number] AGE: 71 ADM/REG DATE : 12/29/16 MR#: [id number] REPORT SERV DATE: 12/30/16 DICTATED BY: KAUSHIK CARRERO DATE: 12/30/16 REPORT STATUS : Draft TRANSCRIBED BY: KEELEY DATE: 12/30/16 DERMATOLOGICAL: Warm and dry extremities. No pallor, no cyanosis. PSYCHIATRIC: Normal affect. Good mood. Alert and oriented x3. LABORATORY DATA: White blood cell count 6.2, hemoglobin 13, hematocrit 42, platelets 253. Sodium 143, potassium 3.9, chloride 103, bicarb 33, BUN 24, creatinine 0.98, glucose 85. Troponin negative. INR 1.0. AST 47, ALT 96, alkaline phosphatase 288, and total bilirubin 0.3. STUDIES: 1. EKG by my own evaluation shows sinus rhythm, premature atrial complexes. 2. CT scan of the abdomen shows cholelithiasis, possible abnormality of the gallbladder wall. ASSESSMENT AND PLAN: 1. Abdominal pain evaluation, check an ultrasound of the gallbladder. 2. Cholelithiasis, check an ultrasound of the gallbladder, noted elevated liver enzymes. 3. Dysuria, check urinalysis. 4. Syncope, very mild, brief, no head injury or collapse. Place on IV fluids, check orthostatics. 5. Fibromyalgia. 6. Chronic back pain, but acute on chronic worsening. We will check an MRI of the lumbosacral spine with history of previous lumbar spine infections. KPL/MODL Kauhsik Carrero M.D. / [id number] CC: Sandie Hatch M.D.
[2016-12-29 22:47] LABS: BASOPHILS 0.2 %; BASOPHILS ABSOLUTE 0.01 10/3/uL (0.0-0.16); EOSINOPHILS 5.5 %; EOSINOPHILS ABSOLUTE 0.34 10/3/uL (0.0-0.53); IMMATURE GRANULOCYTES 0.2 %; IMMATURE GRANULOCYTES ABSOLUTE 0.01 10/3/uL (0.0-0.11); LYMPHOCYTES 33.7 %; MEAN PLATELET VOLUME 9.6 fL (9.2-13.0); MONOCYTES 6.6 %; MONOCYTES ABSOLUTE 0.41 10/3/uL (0.21-1.20); NEUTROPHILS 53.8 %; NEUTROPHILS ABSOLUTE 3.36 10/3/uL (2.02-8.40); RBC DISTRIBUTION WIDTH 22.8 % (12.0-16.0); RED CELL COUNT 4.42 10/6/uL (4.0-5.6); WHITE BLOOD CELLS 6.2 10/3/uL (4.5-10.5)
[2016-12-29 22:49] LABS: HEMATOCRIT 41.8 % (36.0-48.0); HEMOGLOBIN 13.1 g/dL (12.0-16.0); MANUAL DIFF NO %; MEAN CORPUS HGB CONC 31.3 g/dL (32.0-36.0); MEAN CORPUSCULAR HEMOGLOB 29.6 pg (26.0-34.0); MEAN CORPUSCULAR VOLUME 94.6 fL (80-100); PLATELET COUNT 253 10/3/uL (150-400)
[2016-12-29 22:54] LABS: PARTIAL THROMBO TIME 30.6 SEC (22.5-37.2)
[2016-12-29 23:00] LABS: CALCIUM, SERUM 9.3 MG/DL (8.5-10.4); CHLORIDE, SERUM 103 MMOL/L (96-112); CO2 (CARBON DIOXIDE) 33 MMOL/L (24-34); CREATININE 0.98 MG/DL (0.55-1.02); GFR AFRICAN AMERICAN 68 ML/MIN (>=60); GFR NON AFRICAN AMERICAN 59 ML/MIN (>=60); GLUCOSE, SERUM 85 MG/DL (60-99); POTASSIUM, SERUM 3.9 MMOL/L (3.5-5.3); SGOT(AST) 47 U/L (5-40); SGPT(ALT) 96 U/L (5-65); SODIUM, SERUM 143 MMOL/L (135-148); TOTAL BILIRUBIN 0.3 MG/DL (0-1.2)
[2016-12-29 23:01] LABS: A/G RATIO 0.9 (0.7-1.9); ALBUMIN 3.5 G/DL (3.5-5.0); ALKALINE PHOSPHATASE 288 U/L (45-117); BUN (BLOOD UREA NITROGEN) 24 MG/DL (6-23); TOTAL PROTEIN 7.5 G/DL (6.0-8.5)
[2016-12-29 23:05] LABS: PROTIME (NOT ORD) 13.2 SEC (12.0-14.5)
[~2016-12-29 23:42] MED LIST changes: +*UNABLE2; +ASAB PO; +DILAUDID PAIN PUMP IT; +KLONO5 PO; +L20 PO; +SYN112 PO
[2016-12-30 00:27] LABS: BASOPHILS 0.3 %; BASOPHILS ABSOLUTE 0.02 10/3/uL (0.0-0.16); EOSINOPHILS 5.7 %; EOSINOPHILS ABSOLUTE 0.38 10/3/uL (0.0-0.53); ER CBC TAT 0 Hrs 08 Mins; HEMATOCRIT 42.6 % (36.0-48.0); HEMOGLOBIN 13.3 g/dL (12.0-16.0); IMMATURE GRANULOCYTES 0.1 %; IMMATURE GRANULOCYTES ABSOLUTE 0.01 10/3/uL (0.0-0.11); LYMPHOCYTES 36.5 %; LYMPHOCYTES ABSOLUTE 2.44 10/3/uL (0.67-4.30); MANUAL DIFF NO %; MEAN CORPUS HGB CONC 31.2 g/dL (32.0-36.0); MEAN CORPUSCULAR HEMOGLOB 29.4 pg (26.0-34.0); MEAN CORPUSCULAR VOLUME 94.2 fL (80-100); MEAN PLATELET VOLUME 9.9 fL (9.2-13.0); MONOCYTES 8.8 %; MONOCYTES ABSOLUTE 0.59 10/3/uL (0.21-1.20); NEUTROPHILS 48.6 %; NEUTROPHILS ABSOLUTE 3.24 10/3/uL (2.02-8.40); PLATELET COUNT 250 10/3/uL (150-400); RBC DISTRIBUTION WIDTH 23.1 % (12.0-16.0); RED CELL COUNT 4.52 10/6/uL (4.0-5.6); WHITE BLOOD CELLS 6.7 10/3/uL (4.5-10.5)
[2016-12-30 00:34] LABS: PARTIAL THROMBO TIME 31.5 SEC (22.5-37.2); PROTIME (NOT ORD) 13.2 SEC (12.0-14.5)
[2016-12-30 00:44] LABS: A/G RATIO 0.9 (0.7-1.9); ALBUMIN 3.6 G/DL (3.5-5.0); ALKALINE PHOSPHATASE 296 U/L (45-117); BUN (BLOOD UREA NITROGEN) 23 MG/DL (6-23); CALCIUM, SERUM 9.4 MG/DL (8.5-10.4); CHLORIDE, SERUM 102 MMOL/L (96-112); CO2 (CARBON DIOXIDE) 36 MMOL/L (24-34); CREATININE 1.07 MG/DL (0.55-1.02); GFR AFRICAN AMERICAN 61 ML/MIN (>=60); GFR NON AFRICAN AMERICAN 53 ML/MIN (>=60); GLOBULIN 4.2 G/DL (2.5-4.1); GLUCOSE, SERUM 80 MG/DL (60-99); POTASSIUM, SERUM 3.8 MMOL/L (3.5-5.3); SGOT(AST) 46 U/L (5-40); SGPT(ALT) 106 U/L (5-65); SODIUM, SERUM 144 MMOL/L (135-148); TOTAL BILIRUBIN 0.4 MG/DL (0-1.2); TOTAL PROTEIN 7.8 G/DL (6.0-8.5); TROPONIN I <0.02 NG/ML (<0.05)
[2016-12-30 01:07] LABS: PLATELET ESTIMATE ADQ (ADEQUATE)
[2016-12-30] MEDS ORDERED: FERROUS SULF325 M1 PO (05:54)
[2016-12-30] MEDS ORDERED: PROTONIX PO ×2 (05:54→05:57)
[2016-12-30] MEDS ORDERED: L40 PO (05:55)
[2016-12-30] MEDS ORDERED: DEMA20 PO (05:56)
[2016-12-30] MEDS ORDERED: BENTYL10 PO (05:56)
[2016-12-30] MEDS ORDERED: LIOR10 PO (05:58)
[2016-12-30] MEDS ORDERED: DEMA10T PO (05:59)
[2016-12-30] MEDS ORDERED: MIRAPEX0.75 MG PO (06:00)
[2016-12-30] MEDS ORDERED: VOLT75 PO (06:00)
[2016-12-30] MEDS ORDERED: ASAB PO (06:01)
[2016-12-30] MEDS ORDERED: SYN112 PO (06:01)
[2016-12-30] MEDS ORDERED: BUSPIRONE7.5 MG PO (06:01)
[2016-12-30] MEDS ORDERED: KLONO5 PO (06:02)
[2016-12-30] MEDS ORDERED: XYZAL5 MG PO (06:03)
[2016-12-30] MEDS ORDERED: MIRAPEX ER0.375 MG PO ×2 (06:04)
[2016-12-30] MEDS ORDERED: EFFEXOR XR150 MG PO (06:05)
[2016-12-30] MEDS ORDERED: ZANTAC150 MG PO (06:08)
[2016-12-30 12:26] LABS: BASOPHILS 0.2 %; BASOPHILS ABSOLUTE 0.01 10/3/uL (0.0-0.16); EOSINOPHILS ABSOLUTE 0.31 10/3/uL (0.0-0.53); HEMATOCRIT 40.6 % (36.0-48.0); HEMOGLOBIN 12.9 g/dL (12.0-16.0); IMMATURE GRANULOCYTES 0.2 %; IMMATURE GRANULOCYTES ABSOLUTE 0.01 10/3/uL (0.0-0.11); LYMPHOCYTES 35.1 %; LYMPHOCYTES ABSOLUTE 2.16 10/3/uL (0.67-4.30); MEAN CORPUS HGB CONC 31.8 g/dL (32.0-36.0); MEAN CORPUSCULAR HEMOGLOB 29.7 pg (26.0-34.0); MEAN CORPUSCULAR VOLUME 93.3 fL (80-100); MEAN PLATELET VOLUME 9.4 fL (9.2-13.0); MONOCYTES 6.8 %; MONOCYTES ABSOLUTE 0.42 10/3/uL (0.21-1.20); NEUTROPHILS 52.7 %; NEUTROPHILS ABSOLUTE 3.24 10/3/uL (2.02-8.40); PLATELET COUNT 194 10/3/uL (150-400); RBC DISTRIBUTION WIDTH 22.8 % (12.0-16.0); RED CELL COUNT 4.35 10/6/uL (4.0-5.6); WHITE BLOOD CELLS 6.2 10/3/uL (4.5-10.5)
[2016-12-30 12:27] LABS: MANUAL DIFF NO %
[2016-12-30 12:43] LABS: ANISOCYTOSIS 1+ (5-10/OIF) (0-5/OIF); PLATELET ESTIMATE ADQ (ADEQUATE)
[2016-12-30 12:49] LABS: A/G RATIO 0.8 (0.7-1.9); ALBUMIN 3.1 G/DL (3.5-5.0); CALCIUM, SERUM 8.7 MG/DL (8.5-10.4); CHLORIDE, SERUM 106 MMOL/L (96-112); CREATININE 0.66 MG/DL (0.55-1.02); GFR AFRICAN AMERICAN 104 ML/MIN (>=60); GFR NON AFRICAN AMERICAN 90 ML/MIN (>=60); GLOBULIN 3.8 G/DL (2.5-4.1); GLUCOSE, SERUM 75 MG/DL (60-99); POTASSIUM, SERUM 3.7 MMOL/L (3.5-5.3); SGPT(ALT) 77 U/L (5-65); SODIUM, SERUM 143 MMOL/L (135-148); TOTAL BILIRUBIN 0.4 MG/DL (0-1.2); TOTAL PROTEIN 6.9 G/DL (6.0-8.5); TROPONIN I <0.02 NG/ML (<0.05)
[2016-12-30 12:50] LABS: BUN (BLOOD UREA NITROGEN) 16 MG/DL (6-23); CO2 (CARBON DIOXIDE) 27 MMOL/L (24-34)
[2016-12-30 12:51] LABS: ALKALINE PHOSPHATASE 256 U/L (45-117); SGOT(AST) 36 U/L (5-40)
[2016-12-30 12:52] LABS: C-REACTIVE PROTEIN 5.1 MG/L (<8.0)
[2016-12-30 13:11] LABS: PROTIME (NOT ORD) 13.4 SEC (12.0-14.5)
[2016-12-30 13:12] LABS: PARTIAL THROMBO TIME 34.4 SEC (22.5-37.2)
[2016-12-30 14:24] LABS: ASCORBIC ACID (UR NOT ORDER) NEG (NEG); BILIRUBIN, URINE NEGATIVE (NEG); KETONE, URINE TRACE MG/DL (NEG); LEUKOCYTE ESTERASE(NOT OR TRACE (NEG); WBC (NOT ORDERED) (RFLEX) 1 (0-5)
[2017-05-23] MEDS ORDERED: DITRO5 PO (08:13)
[2017-05-30] MEDS ORDERED: HEMOCYTE324 MG PO (14:57)
[2017-06-14] MEDS ORDERED: DILAUDID PAIN PUMP INF (10:58)
== END 2016-12-30 16:41 | disposition home or self-care (01) ==
LOC: ER 23:42 → 5SO 23:59
PROVIDERS: Emergency Medicine; Hospitalist; Internal Medicine; Specialist
DX: R10.9 Unspecified abdominal pain (principal); K80.20 Calculus of gallbladder without cholecystitis without obstruction; R30.0 Dysuria; R55 Syncope and collapse; G89.29 Other chronic pain; M54.9 Dorsalgia, unspecified; M79.7 Fibromyalgia; D64.9 Anemia, unspecified; E03.9 Hypothyroidism, unspecified; M19.90 Unspecified osteoarthritis, unspecified site; F32.9 Major depressive disorder, single episode, unspecified; F41.9 Anxiety disorder, unspecified; R94.5 Abnormal results of liver function studies; G47.33 Obstructive sleep apnea (adult) (pediatric); Z87.440 Personal history of urinary (tract) infections; Z88.8 Allergy status to other drugs, medicaments and biological substances; Z87.11 Personal history of peptic ulcer disease; Z87.01 Personal history of pneumonia (recurrent); Z90.49 Acquired absence of other specified parts of digestive tract; Z98.890 Other specified postprocedural states; Z88.1 Allergy status to other antibiotic agents; Z88.5 Allergy status to narcotic agent; Z88.6 Allergy status to analgesic agent; Z79.82 Long term (current) use of aspirin; Z79.899 Other long term (current) drug therapy
CPT/HCPCS: 36415; 74176; 76705; 80053; 81001; 82150; 83605; 83690; 83735; 83880; 84443; 84484; 85025; 85610; 85652; 85730; 86140; 86850; 86900; 86901; 93005; 96372; 99285; G0378